=== PATIENT | male | born 1985 | race Two or more races ===

== ENCOUNTER 2020-01-12 18:09 | Emergency (ER) | payer MEDICAID ==
[~2020-01-12] VITALS: Ht 172.7 cm; Wt 74.0 kg
[2020-01-12] MEDS ORDERED: IBUPROFEN 600MG TABLET PO ONE (18:30)
[2020-01-12 18:35] VITALS: BP 116/80
== END 2020-01-12 19:58 | disposition left against medical advice (07) ==
LOC: ER 18:09
DX: M25.571 Pain in right ankle and joints of right foot (principal)
CPT/HCPCS: 29515; 73610; 99283